=== PATIENT | male | born 1935 | race Caucasian/White ===

== ENCOUNTER 2016-10-27 11:27 | Day surgery (SDC) | payer MEDICARE, BC ==
--- NOTE | ~2016-10-27 | EGD ---
EGD REPORT [facility] [address] [address] NAME: JACOB WHELAN : [birth year] STATUS : REG [facility]#: [id number] AGE: 80 ADM/REG DATE : 10/27/16 MR#: [id number] REPORT SERV DATE: 10/27/16 DICTATED BY: DATE: REPORT STATUS : Draft TRANSCRIBED BY: [employer] DATE: 10/27/16 [facility] Patient Name: Jacob Whelan Date of : 1935 Attending MD: YVETTE CRONIN MD Procedure Date No Time: 10/27/2016 Procedure: Colonoscopy Indications: High risk colon cancer surveillance: Personal history of colon cancer Referring MD: VALERI MORENO Medicines: Monitored Anesthesia Care Complications: No immediate complications. Procedure: Pre-Anesthesia Assessment: - ASA Grade Assessment: III - A patient with severe systemic disease. After I obtained informed consent, the scope was passed under direct vision. Throughout the procedure, the patient's blood pressure, pulse, and oxygen saturations were monitored continuously. The PCF [id number] was introduced through the anus and advanced to the cecum, identified by appendiceal orifice and ileocecal valve. The colonoscopy was performed without difficulty. The patient tolerated the procedure well. The quality of the bowel preparation was good. Findings: The perianal and digital rectal examinations were normal. There was evidence of a prior end-to-end colo-colonic anastomosis in the rectum. This was patent. This was characterized by healthy appearing mucosa. No other significant abnormalities were identified in a careful examination of the remainder of the colon. There is no endoscopic evidence of diverticula, inflammation, mass, polyps, ulcerations or angioectasia in the entire colon. No additional abnormalities were found on retroflexion. Impression: - Patent end-to-end colo-colonic anastomosis. Recommendation: - Patient has a contact number available for emergencies. The signs and symptoms of potential delayed complications were discussed with the patient. Return to normal activities tomorrow. Written discharge instructions were provided to the patient. - Return to previous diet. - Discharge patient to home. EGD REPORT [address] [address] NAME: JACOB WHELAN : [birth year] STATUS : REG [facility]#: [id number] AGE: 80 ADM/REG DATE : 10/27/16 MR#: [id number] REPORT SERV DATE: 10/27/16 DICTATED BY: DATE: REPORT STATUS : Draft TRANSCRIBED BY: First To File DATE: 10/27/16 - Continue present medications. - Repeat colonoscopy in 5 years for surveillance. Procedure Code(s): --- Professional --- G0105, Colorectal cancer screening; colonoscopy on individual at high risk Diagnosis Code(s): --- Professional --- Z98.0, Intestinal bypass and anastomosis status Z85.038, Personal history of other malignant neoplasm of large intestine CPT copyright 2013 [employer]. All rights reserved. The codes documented in this report are preliminary and upon tape making machine operator review may be revised to meet current compliance requirements. YVETTE CRONIN MD 10/27/2016 1:35 PM This report has been signed electronically. Number of Addenda: 0 Note Initiated On: 10/27/2016 1:04 PM Scope Withdrawal Time 0 hours 7 minutes [address] [place] [address] [address] [id number]
--- NOTE | ~2016-10-27 | EGD ---
EGD REPORT [facility] [address] [address] NAME: JENARO WHELAN : [birth year] STATUS : REG [facility]#: [id number] AGE: 80 ADM/REG DATE : 10/27/16 MR#: [id number] REPORT SERV DATE: 10/27/16 DICTATED BY: DATE: REPORT STATUS : Draft TRANSCRIBED BY: [employer] DATE: 10/27/16 [facility] Patient Name: Jenaro Whelan Date of : 1935 Attending MD: YVETTE CRONIN MD Procedure Date No Time: 10/27/2016 Procedure: Upper GI endoscopy Indications: Dyspepsia Referring MD: VALERI MORENO Medicines: Monitored Anesthesia Care Complications: No immediate complications. Procedure: Pre-Anesthesia Assessment: - ASA Grade Assessment: III - A patient with severe systemic disease. After obtaining informed consent, the endoscope was passed under direct vision. Throughout the procedure, the patient's blood pressure, pulse, and oxygen saturations were monitored continuously. The GIF H190 [id number] was introduced through the mouth, and advanced to the third part of duodenum. The upper GI endoscopy was accomplished without difficulty. The patient tolerated the procedure well. Findings: The examined esophagus was normal. There is no endoscopic evidence of Polanco's esophagus, areas of erosion, hiatus hernia, ulcerations or varices in the entire esophagus. The Z-line was regular and was found 40 cm from the incisors. The entire examined stomach was normal. There is no endoscopic evidence of erythema or inflammatory changes suggestive of gastritis, mucosal abnormalities, ulceration or varices in the entire examined stomach. The examined duodenum was normal. There is no endoscopic evidence of inflammation, mucosal abnormalities or ulceration in the entire examined duodenum. The cardia and gastric fundus were normal on retroflexion. Impression: - Normal esophagus. - Z-line regular, 40 cm from the incisors. - Normal stomach. - Normal examined duodenum. Recommendation: - Patient has a contact number available for emergencies. The signs and symptoms of potential delayed complications were discussed with the patient. Return to EGD REPORT [address] [address] NAME: JENARO WHELAN : [birth year] STATUS : REG [facility]#: [id number] AGE: 80 ADM/REG DATE : 10/27/16 MR#: [id number] REPORT SERV DATE: 10/27/16 DICTATED BY: DATE: REPORT STATUS : Draft TRANSCRIBED BY: [employer] DATE: 10/27/16 normal activities tomorrow. Written discharge instructions were provided to the patient. - Return to previous diet. - Discharge patient to home. - Continue present medications. Procedure Code(s): --- Professional --- 08931, Esophagogastroduodenoscopy, flexible, transoral; diagnostic, including collection of specimen(s) by brushing or washing, when performed (separate procedure) Diagnosis Code(s): --- Professional --- K30, Functional dyspepsia CPT copyright 2013 [employer]. All rights reserved. The codes documented in this report are preliminary and upon surgical coder review may be revised to meet current compliance requirements. YVETTE CRONIN MD 10/27/2016 1:21 PM This report has been signed electronically. Number of Addenda: 0 Note Initiated On: 10/27/2016 1:04 PM Scope Withdrawal Time 0 hours 0 minutes 0 seconds
[~2016-10-27 11:27] MED LIST: ASAB PO; ASMANEX200 INH; B121000P IM; BETAMETH VAL0.12 EX; CREON DR PO; CREON PO; CREON12000 UNT PO; Creon PO; DIAMODE2 MG PO; ELIQUIS 5 MG TAB5 MG PO; ENABLEX7.5 PO; EXELON4.5 MG PO; EXELON4.5 MG TD; FIBER POWDER; FLOMAX4 PO; FLONASE NAS; FOSAMAX70 MG PO; HYDROCODONE-APAP PO; IMOD PO; IRON325 MG PO; LIPITOR20 PO; LOM PO; LORTAB10 PO; LOVAZA1 GM PO; MCZ25 PO; MULTIPLE VIT PO; NAMENDA5 PO; NORCO1 TAB PO; OTC EYE DROP; PROAIR HFA INH; PROBIOTIC; PROBIOTIC PO; PROSCAR5 PO; PROZAC PO; REFRES1 TOP; RESTASIS OPH; SPECTRAVITE; TRAZ50 PO; TRIAMCINOLON0.025 % EX; V5 PO; VESICARE10 MG PO; ZOCOR40 PO
== END 2016-10-27 23:59 | disposition home or self-care (01) ==
LOC: DMU 11:27
PROVIDERS: Internal Medicine Gastroenterology
PROC: 0DJD8ZZ Inspection of Lower Intestinal Tract, Via Natural or Artificial Opening Endoscopic (ICD-10-PCS; principal; 2016-10-27 13:30)
PROC: 0DJ08ZZ Inspection of Upper Intestinal Tract, Via Natural or Artificial Opening Endoscopic (ICD-10-PCS; 2016-10-27 13:30)
DX: Z12.11 Encounter for screening for malignant neoplasm of colon (principal); F41.9 Anxiety disorder, unspecified; G47.33 Obstructive sleep apnea (adult) (pediatric); E78.00 Pure hypercholesterolemia, unspecified; F32.9 Major depressive disorder, single episode, unspecified; M19.90 Unspecified osteoarthritis, unspecified site; Z86.2 Personal history of diseases of the blood and blood-forming organs and certain disorders involving the immune mechanism; Z85.038 Personal history of other malignant neoplasm of large intestine; Z98.0 Intestinal bypass and anastomosis status; Z94.7 Corneal transplant status; Z88.0 Allergy status to penicillin; Z79.899 Other long term (current) drug therapy; Z99.81 Dependence on supplemental oxygen; Z86.010 Personal history of colon polyps; Z98.41 Cataract extraction status, right eye; Z98.42 Cataract extraction status, left eye; Z98.890 Other specified postprocedural states
CPT/HCPCS: 43235; G0105; J2370